=== PATIENT | male | born 1970 | race Caucasian/White ===

== ENCOUNTER 2020-02-07 09:06 | Emergency (ER) | payer OTHER ==
[~2020-02-07] VITALS: Ht 182.9 cm; Wt 100.0 kg
[2020-02-07 09:09] VITALS: BP 130/84
[2020-02-07] MEDS ORDERED: LIDOcaine 1% W/epiNEPHrine 1:200,000 10ml vial IJ ONE (09:20)
[2020-02-07] MEDS ORDERED: LIDOcaine 1% w/epiNEPHrine 1:200,000 30ml vial IJ ONE (09:30)
[2020-02-07] MEDS ORDERED: ceFAZolin 1gm IM kit IM ONE (10:40)
[2020-02-07] MEDS ORDERED: HYDR-4383 PO (10:56)
[2020-02-07] MEDS ORDERED: CEPH-572 PO (10:56)
== END 2020-02-07 11:36 | disposition home or self-care (01) ==
LOC: ER 09:07
DX: S61.310A Laceration without foreign body of right index finger with damage to nail, initial encounter (principal); S52.691B Other fracture of lower end of right ulna, initial encounter for open fracture type I or II; Z79.2 Long term (current) use of antibiotics; Z79.899 Other long term (current) drug therapy; W26.8XXA Contact with other sharp object(s), not elsewhere classified, initial encounter; Y93.89 Activity, other specified; Y92.89 Other specified places as the place of occurrence of the external cause; Y99.8 Other external cause status
CPT/HCPCS: 12001; 26742; 73140; 96372; 99284; J0690; 12002; 26725; 99283

== ENCOUNTER 2020-02-27 05:04 | Day surgery (SDC) | payer BC ==
[2020-02-25 11:59] LABS: BASOPHILS # (AUTO) 0.1 X10'3 (0-0.2); BASOPHILS % (AUTO) 0.9 % (0-1); EOSINOPHILS # (AUTO) 0.2 X10'3 (0-0.9); LYMPHOCYTES # (AUTO) 1.5 X10'3 (1.1-4.8); LYMPHOCYTES % (AUTO) 25.9 % (21-51); MEAN CORPUSCULAR HEMOGLOBIN 30.7 PG (27.0-31.0); MEAN CORPUSCULAR HGB CONC 33.9 g/dL (33.0-36.5); MEAN CORPUSCULAR VOLUME 90.6 FL (78-98); MEAN PLATELET VOLUME 8.3 FL (7.4-10.4); MONOCYTES # (AUTO) 0.6 X10'3 (0-0.9); MONOCYTES % (AUTO) 11.2 % (2-12); NEUTROPHILS # (AUTO) 3.4 X10'3 (1.8-7.7); PRE OP HEMATOCRIT 42.4 % (42.0-52.0); PRE OP HEMOGLOBIN 14.4 g/dL (14.0-17.9); PRE OP PLATELET COUNT 294 X10'3 (140-440); RED BLOOD COUNT 4.69 X10'6 (4.70-6.10); RED CELL DISTRIBUTION WIDTH 12.9 % (11.5-14.5)
[2020-02-25 12:24] LABS: ALBUMIN 4.4 G/DL (3.4-5.0); ALBUMIN/GLOBULIN RATIO 1.4 (1.1-1.5); ALKALINE PHOSPHATASE 55 IU/L (46-116); BLOOD UREA NITROGEN 18 MG/DL (7-18); BUN/CREATININE RATIO 17.6 (5.4-32.0); CALCIUM 9.3 MG/DL (8.5-10.1); CHLORIDE 106 MMOL/L (99-107); CREATININE 1.02 MG/DL (0.60-1.10); PRE OP ANION GAP 9 (8-16); PRE OP AST 38 U/L (10-37); PRE OP BILIRUB, TOTAL 0.5 MG/DL (0.0-1.0); PRE OP GLUCOSE 93 MG/DL (70-104); PRE OP POTASSIUM 3.9 MMOL/L (3.4-5.1); PRE OP SODIUM 142 MMOL/L (135-145); TOTAL CARBON DIOXIDE 27.2 MMOL/L (24-32); TOTAL PROTEIN 7.6 G/DL (6.4-8.2); eGFR 78 ML/MIN
[2020-02-25 12:32] LABS: PRE OP ALT 84 U/L (30-65)
[~2020-02-27] VITALS: Ht 182.9 cm; Wt 106.0 kg
[~2020-02-27 05:04] MED LIST: ASCO-407 PO; IBUP-2417 PO; MELA10TA PO; famotidine 20mg tablet PO ONE; ringers solution, lacted 1,000 ML IV SCH
[2020-02-27 05:30] VITALS: BP 118/83
[2020-02-27] MEDS ORDERED: famotidine 20mg tablet PO ONE (05:30)
[2020-02-27] MEDS ORDERED: ceFAZolin 2gm in dextrose, iso 50 ML IV ONE (05:30)
[2020-02-27] MEDS ORDERED: LIDOcaine 1% (10mg/ml) 2ml vial ONE (05:59)
[2020-02-27] MEDS ORDERED: BUPIVAcaine/PF 2.5mg/ml (0.25%) 10ml vial ONE (06:39)
[2020-02-27] MEDS ORDERED: LIDOcaine 0.5% (5mg/ml) 50ml vial ONE (07:18)
[2020-02-27] MEDS ORDERED: propofol 10mg/ml 20ml vial IV ONE (07:28)
[2020-02-27] MEDS ORDERED: fentaNYL/PF 50MCG/1 ML 2ML syringe ONE (07:33)
[2020-02-27] MEDS ORDERED: morphine 2 MG/ML inj. syringe IV PRN (08:00)
[2020-02-27] MEDS ORDERED: ringers solution, lacted 1,000 ML IV SCH (08:00)
[2020-02-27] MEDS ORDERED: meperidine/PF 25mg/ml syringe IV PRN ×3 (08:00)
[2020-02-27] MEDS ORDERED: ondansetron/PF 4mg/2ml inj IV PRN (08:00)
[2020-02-27] MEDS ORDERED: proCHLORperazine 10 MG/2 ml inj IV PRN (08:00)
[2020-02-27] MEDS ORDERED: morphine 4 MG/ML inj SYRINge IV PRN (08:00)
[2020-02-27] MEDS ORDERED: acetaminophen 1,000mg/100ml IV 100 ML IV PRN (08:00)
[2020-02-27] MEDS ORDERED: MIDAZolam 5mg/5ml vial ONE (08:14)
[2020-02-27 08:19] VITALS: BP 117/79
--- NOTE | 2020-02-27 08:19 | NUR ---
[facility], accompanied by Anesthesiologist Michael and report given by Anesthesiolgist. Pt responsive to questions but sleepy, mask on at 10L and all VS stable. 20G left hand runing IVF LR at 100cc/hr. Right wrist/hand dressed and taped fingers exposed good cap refill.
[2020-02-27 08:30] VITALS: BP 121/82
[2020-02-27 08:40] VITALS: BP 123/95
[2020-02-27 08:50] VITALS: BP 135/101
[2020-02-27 09:00] VITALS: BP 135/96
--- NOTE | 2020-02-27 09:28 | NUR ---
Pt discharged to vehicle without incident by wheelchair. IV DC'd. Pt alert and oriented, verbalized understanding of discharge instructions as did on phone. Pt and state they have meds at their pharmacy to [facility]. All belongings returned to patient.
== END 2020-02-27 09:29 | disposition home or self-care (01) ==
LOC: PAS 05:04
PROVIDERS: ATTEND Orthopaedic Surgery Hand Surgery
DX: S62.610A Displaced fracture of proximal phalanx of right index finger, initial encounter for closed fracture (principal); Z98.890 Other specified postprocedural states; Z79.899 Other long term (current) drug therapy; Z20.828 Contact with and (suspected) exposure to other viral communicable diseases; W29.8XXA Contact with other powered hand tools and household machinery, initial encounter; Y93.89 Activity, other specified; Y92.89 Other specified places as the place of occurrence of the external cause; Y99.8 Other external cause status
CPT/HCPCS: 26727; 36415; 80053; 82948; 85025; 87635; 93005; A6222; C1713; C9803; J2001; J2250; J3010; J3490; A4215; A6449; J2704; J7120